=== PATIENT | female | born 1945 | race Caucasian/White ===

== ENCOUNTER 2018-11-01 13:00 | Outpatient (CLI) | payer MEDICARE ==
--- NOTE | 2018-11-01 15:15 | RAD ---
RADIOGRAPH LEFT KNEE 2 VIEWS: 11/01/18 HISTORY: 73-year-old female with primary osteoarthritis of knee. FINDINGS: AP and lateral standing views. No joint effusion or edema in Hoffa's fat pad. Joint spaces are mainta ined without evidence of erosions or osteophytes. No fracture or destructive osseous lesion. IMPRESSION: Normal. POS: [facility]
--- NOTE | 2018-11-01 15:17 | RAD ---
RADIOGRAPH RIGHT KNEE 2 VIEWS: 11/01/18 HISTORY: 73-year-old female with primary osteoarthritis of the right knee. FINDINGS: Standing AP and lateral views. No joint effusion. Minimal irregularity of posterior articular surfac e of patella, without osteophytes. Medial and lateral compartment joint spaces are maintained without evidence of erosions or high grade osteophytosis. No fracture or destructive osseous lesion. IMPRESSION: 1. Minimal osteoarthrosis of the patellofemoral compartment. 2. Otherwise negative. POS: TPC
== END 2018-11-01 13:01 | disposition home or self-care (01) ==
LOC: BICRAD 13:00
PROVIDERS: ATTEND Internal Medicine Rheumatology
DX: M17.0 Bilateral primary osteoarthritis of knee (principal)

== ENCOUNTER 2019-03-15 10:04 | Outpatient (CLI) | payer MEDICARE ==
--- NOTE | 2019-03-15 10:54 | MMO ---
Bilateral MAMMO Bilat Screen [facility]. CLINICAL HISTORY: Patient is 73 years old and is seen for screening. The patient has the following family history of breast cancer: mother, at age 66. The patient has no personal history of cancer. VIEWS: The views performed were: bilateral craniocaudal with tomosynthesis and bilateral mediolateral oblique with tomosynthesis. FILMS COMPARED: The present examination has been compared to prior imaging studies performed at [facility] on 11/02/2012, 03/28/2014, 07/02/2015 and 08/10/2016. This study has been interpreted with the assistance of computer-aided detection. MAMMOGRAM FINDINGS: There are scattered fibroglandular densities. There are vascular calcifications seen in both breasts. There are no suspicious masses, suspicious calcifications, or new areas of architectural distortion. IMPRESSION: A ROUTINE FOLLOW-UP MAMMOGRAM IN 1 YEAR IS RECOMMENDED. THE RESULTS OF THIS EXAM WERE SENT TO THE PATIENT. ACR BI-RADS Category 2 - Benign finding MAMMOGRAPHY NOTE: 1. A negative mammogram report should not delay a biopsy if a dominant of clinically suspicious mass is present. 2. Approximately 10% to 15% of breast cancers are not detected by mammography. 3. Adenosis and dense breasts may obscure an underlying neoplasm. Reported by: MARGIE KIRBY MD Electonically Signed: [id number]
== END 2019-03-15 10:05 | disposition home or self-care (01) ==
LOC: BICMAMMO 10:04
PROVIDERS: ATTEND Internal Medicine
DX: Z12.31 Encounter for screening mammogram for malignant neoplasm of breast (principal); Z80.3 Family history of malignant neoplasm of breast
CPT/HCPCS: 77063; 77067

== ENCOUNTER 2020-03-19 08:19 | Outpatient (CLI) | payer MEDICARE ==
--- NOTE | 2020-03-20 07:51 | MMO ---
Bilateral MAMMO Bilat Screen [facility]. CLINICAL HISTORY: Patient is 74 years old and is seen for screening. The patient has the following family history of breast cancer: mother, at age 66. The patient has no personal history of cancer. VIEWS: The views performed were: bilateral craniocaudal with tomosynthesis and bilateral mediolateral oblique with tomosynthesis. FILMS COMPARED: The present examination has been compared to prior imaging studies performed at [facility] on 03/28/2014, 07/02/2015, 08/10/2016 and 03/15/2019. This study has been interpreted with the assistance of computer-aided detection. MAMMOGRAM FINDINGS: There are scattered fibroglandular densities. There is an oval mass measuring 15 millimeters with circumscribed margins seen in the central region of the right breast. In the left breast, there are no suspicious masses, calcifications or areas of architectural distortion. IMPRESSION: MASS IN THE RIGHT BREAST REQUIRES ADDITIONAL EVALUATION. AN ULTRASOUND EXAM IS RECOMMENDED. THE RESULTS OF THIS EXAM WERE SENT TO THE PATIENT. ACR BI-RADS Category 0 - Incomplete: Need additional imaging evaluation. [facility] will notify the patient of the need for additional imaging services. MAMMOGRAPHY NOTE: 1. A negative mammogram report should not delay a biopsy if a dominant of clinically suspicious mass is present. 2. Approximately 10% to 15% of breast cancers are not detected by mammography. 3. Adenosis and dense breasts may obscure an underlying neoplasm. Reported by: MARGIE KIRBY MD Electonically Signed: [id number]
== END 2020-03-19 08:20 | disposition home or self-care (01) ==
LOC: BICMAMMO 08:19
PROVIDERS: ATTEND Internal Medicine
DX: Z12.31 Encounter for screening mammogram for malignant neoplasm of breast (principal); N63.10 Unspecified lump in the right breast, unspecified quadrant; Z80.3 Family history of malignant neoplasm of breast
CPT/HCPCS: 77063; 77067

== ENCOUNTER 2020-03-25 08:42 | Outpatient (CLI) | payer MEDICARE ==
--- NOTE | 2020-03-25 09:10 | ULT ---
Exam: Right breast ultrasound Limited: HISTORY: Follow-up mass on right mammogram COMPARISON: Diagnostic mammogram, 03/19/2020 FINDINGS: At the 12:00 retroareolar region there is a 0.8 x 1.1 x 1.1 cm thin-walled benign cyst accounting for the mammographic finding. IMPRESSION: BI-RADS Category 2 benign findings. Continued annual follow-up mammography.
== END 2020-03-25 08:43 | disposition home or self-care (01) ==
LOC: BICULT 08:42
PROVIDERS: ATTEND Internal Medicine
DX: R92.8 Other abnormal and inconclusive findings on diagnostic imaging of breast (principal)

== ENCOUNTER 2021-03-20 10:43 | Outpatient (CLI) | payer MEDICARE | END 2021-03-20 10:44 | disposition home or self-care (01) | LOC: BICMAMMO 10:43 | PROVIDERS: ATTEND Internal Medicine | DX: Z12.31 Encounter for screening mammogram for malignant neoplasm of breast (principal); Z80.3 Family history of malignant neoplasm of breast | CPT/HCPCS: 77063; 77067 ==

== ENCOUNTER 2022-08-27 13:27 | Outpatient (CLI) | payer MEDICARE, OTHER | END 2022-08-27 13:28 | disposition home or self-care (01) | LOC: BICMAMMO 13:27 | PROVIDERS: ATTEND Internal Medicine | DX: Z12.31 Encounter for screening mammogram for malignant neoplasm of breast (principal); Z80.3 Family history of malignant neoplasm of breast | CPT/HCPCS: 77063; 77067 ==

== ENCOUNTER 2025-02-08 09:44 | Outpatient (CLI) | payer MEDICARE, OTHER ==
[2025-02-08] MEDS ORDERED: Sincalide 5 MCG VIAL ONE (10:43)
[2025-02-08] MEDS ORDERED: Bacteriostatic Normal Saline 30 ML VIAL ONE (10:44)
== END 2025-02-08 09:45 | disposition home or self-care (01) ==
LOC: NM 09:44
PROVIDERS: ATTEND Internal Medicine
DX: R10.9 Unspecified abdominal pain (principal)
CPT/HCPCS: 78227; A9537; J2805